=== PATIENT | male | born 1980 | race African-American/Black ===

== ENCOUNTER 2020-11-19 17:24 | Emergency (ER) | payer MEDICAID ==
[~2020-11-19] VITALS: Ht 180.3 cm; Wt 110.0 kg
[2020-11-19] MEDS ORDERED: MECLIZINE 25MG TABLET PO ONE (18:15)
[2020-11-19 18:21] LABS: BASOPHILS % 1.1 % (0.0-2.0); EOSINOPHILS % 5.1 % (0.0-5.0); HEMATOCRIT. 40.8 % (42.0-52.0); HEMOGLOBIN. 14.1 g/dL (14.0-18.0); LYMPHOCYTES % 25.8 % (20.0-50.0); MEAN CORPUSCULAR HEMOGLOBIN 31.2 pg (28.0-32.0); MEAN CORPUSCULAR VOLUME 90.7 fL (80.0-94.0); MEAN PLATELET VOLUME 6.9 fl (7.4-10.4); MONOCYTES % 8.9 % (2.0-8.0); NEUTROPHILS % 59.1 % (40.0-76.0); PLATELET 286 x1000/uL (130-400); RED CELL DISTRIBUTION WIDTH 13.1 % (11.6-14.6)
[2020-11-19 18:22] LABS: CHLORIDE 106 mEq/L (98-107)
[2020-11-19 19:54] LABS: CLARITY URINE CLEAR (CLEAR); COLOR URINE YELLOW (YELLOW); KETONES URINE NEGATIVE (NEGATIVE); LEUKOCYTE ESTERASE URINE NEGATIVE (NEGATIVE); NITRITE URINE NEGATIVE (NEGATIVE); OCCULT BLOOD URINE NEGATIVE (NEGATIVE); PROTEIN URINE NEGATIVE (NEGATIVE); SPECIFIC GRAVITY URINE 1.003 (1.005-1.030); UROBILINOGEN URINE 0.2 E.U./dL (0.2-1.0)
[2020-11-19 20:42] VITALS: BP 120/80
[2020-11-19] MEDS ORDERED: KETOROLAC 60MG/2ML VIAL IM ONE (20:45)
[2020-11-21] MEDS ORDERED: AZIT1PAC9 MT (18:19)
[2020-11-21] MEDS ORDERED: MECL-159 MT (18:19)
[2020-11-21] MEDS ORDERED: AMOX-494 MT (18:19)
[2020-11-23 04:09] LABS: NEISSERIA GONORRHOEAE NAA Negative (Negative)
== END 2020-11-19 20:43 | disposition home or self-care (01) ==
LOC: ER 17:24
DX: R42 Dizziness and giddiness (principal); J18.9 Pneumonia, unspecified organism; I10 Essential (primary) hypertension; Z88.8 Allergy status to other drugs, medicaments and biological substances
CPT/HCPCS: 36415; 71045; 80053; 81003; 83880; 84484; 85025; 87491; 87591; 93005; 96372; 99285; J1885; J8597

== ENCOUNTER 2022-04-25 15:15 | Emergency (ER) | payer MEDICAID, OTHER ==
[~2022-04-25] VITALS: Ht 180.3 cm; Wt 106.0 kg
[~2022-04-25 15:15] MED LIST: AMOX-494 MT; AZIT1PAC9 MT; MECL-159 MT
[2022-04-25 18:25] LABS: BASOPHILS % 0.6 % (0.0-2.0); EOSINOPHILS % 3.6 % (0.0-5.0); HEMATOCRIT. 42.6 % (42.0-52.0); HEMOGLOBIN. 14.3 g/dL (14.0-18.0); LYMPHOCYTES % 24.1 % (20.0-50.0); MEAN CORPUSCULAR HEMOGLOBIN 30.2 pg (28.0-32.0); MEAN CORPUSCULAR VOLUME 90.3 fL (80.0-94.0); MEAN PLATELET VOLUME 7.1 fl (7.4-10.4); MONOCYTES % 13.1 % (2.0-8.0); NEUTROPHILS % 58.6 % (40.0-76.0); PLATELET 257 x1000/uL (130-400); RED BLOOD CELL COUNT 4.72 mill/uL (4.7-6.1); RED CELL DISTRIBUTION WIDTH 14.2 % (11.6-14.6)
[2022-04-25 18:30] LABS: CHLORIDE 105 mEq/L (98-107)
[2022-04-25 20:19] VITALS: BP 149/95
== END 2022-04-25 20:22 | disposition home or self-care (01) ==
LOC: ER 15:28
DX: K46.9 Unspecified abdominal hernia without obstruction or gangrene (principal); I10 Essential (primary) hypertension; Z88.0 Allergy status to penicillin
CPT/HCPCS: 36415; 74176; 80053; 85025; 99291

== ENCOUNTER 2022-05-24 11:51 | Emergency (ER) | payer OTHER ==
[~2022-05-24] VITALS: Ht 188 cm; Wt 164.3 kg
[2022-05-24 22:35] LABS: HEMATOCRIT. 43.2 % (42.0-52.0); HEMOGLOBIN. 14.5 g/dL (14.0-18.0); LYMPHOCYTES % 27.9 % (20.0-50.0); MEAN CORPUSCULAR VOLUME 89.7 fL (80.0-94.0); MEAN PLATELET VOLUME 7.2 fl (7.4-10.4); MONOCYTES % 9.6 % (2.0-8.0); NEUTROPHILS % 55.5 % (40.0-76.0); PLATELET 277 x1000/uL (130-400); RED BLOOD CELL COUNT 4.82 mill/uL (4.7-6.1); RED CELL DISTRIBUTION WIDTH 14.1 % (11.6-14.6)
[2022-05-24 22:36] LABS: CHLORIDE 106 mEq/L (98-107)
[2022-05-25] MEDS ORDERED: AZIT250T12 MT (02:05)
[2022-05-25 03:44] VITALS: BP 101/78
== END 2022-05-25 02:50 | disposition home or self-care (01) ==
LOC: ER 11:51
DX: J18.9 Pneumonia, unspecified organism (principal); I10 Essential (primary) hypertension; Z20.822 Contact with and (suspected) exposure to COVID-19
CPT/HCPCS: 36415; 71045; 80053; 82962; 84484; 85025; 87426; 87804; 93005; 99285; C9803

== ENCOUNTER 2022-06-03 09:45 | Emergency (ER) | payer OTHER ==
[~2022-06-03] VITALS: Ht 188 cm; Wt 150.0 kg
[~2022-06-03 09:45] MED LIST changes: +AZIT250T12 MT
[2022-06-03 09:53] VITALS: BP 151/101
[2022-06-03] MEDS ORDERED: KETOROLAC 60MG/2ML VIAL IM ONE (12:15)
[2022-06-03] MEDS ORDERED: AMOX1TAB16 MT (13:29)
== END 2022-06-03 13:53 | disposition home or self-care (01) ==
LOC: ER 11:04
DX: H66.92 Otitis media, unspecified, left ear (principal); R42 Dizziness and giddiness; I10 Essential (primary) hypertension; H57.89 Other specified disorders of eye and adnexa
CPT/HCPCS: 70450; 96372; 99284; J1885

== ENCOUNTER 2022-09-02 10:54 | Emergency (ER) | payer MEDICAID, OTHER ==
[~2022-09-02] VITALS: Ht 188 cm; Wt 150.0 kg
[~2022-09-02 10:54] MED LIST changes: +AMOX1TAB16 MT
[2022-09-02 10:57] VITALS: BP 157/93
[2022-09-02] MEDS ORDERED: ASPIRIN 325MG EC TABLET PO ONE (13:00)
[2022-09-02 13:30] LABS: BASOPHILS % 0.9 % (0.0-2.0); EOSINOPHILS % 6.1 % (0.0-5.0); HEMOGLOBIN. 14.6 g/dL (14.0-18.0); LYMPHOCYTES % 23.8 % (20.0-50.0); MEAN CORPUSCULAR HEMOGLOBIN 30.5 pg (28.0-32.0); MEAN CORPUSCULAR VOLUME 89.5 fL (80.0-94.0); MEAN PLATELET VOLUME 7.4 fl (7.4-10.4); MONOCYTES % 10.2 % (2.0-8.0); PLATELET 289 x1000/uL (130-400); RED CELL DISTRIBUTION WIDTH 14.2 % (11.6-14.6)
[2022-09-02 13:39] LABS: CHLORIDE 108 mEq/L (98-107)
== END 2022-09-02 17:45 | disposition home or self-care (01) ==
LOC: ER 11:20
DX: R07.89 Other chest pain (principal); I83.93 Asymptomatic varicose veins of bilateral lower extremities
CPT/HCPCS: 36415; 71045; 80053; 83880; 84484; 85025; 93005; 93970; 99285

== ENCOUNTER 2022-11-01 20:37 | Emergency (ER) | payer OTHER ==
[~2022-11-01] VITALS: Ht 188 cm; Wt 150.0 kg
[2022-11-01 21:11] LABS: BASOPHILS % 1.1 % (0.0-2.0); EOSINOPHILS % 5.4 % (0.0-5.0); HEMATOCRIT. 41.7 % (42.0-52.0); LYMPHOCYTES % 30.6 % (20.0-50.0); MEAN CORPUSCULAR HEMOGLOBIN 30.3 pg (28.0-32.0); MEAN CORPUSCULAR VOLUME 90.6 fL (80.0-94.0); MEAN PLATELET VOLUME 7.2 fl (7.4-10.4); MONOCYTES % 9.7 % (2.0-8.0); NEUTROPHILS % 53.2 % (40.0-76.0); PLATELET 280 x1000/uL (130-400); RED BLOOD CELL COUNT 4.61 mill/uL (4.7-6.1); RED CELL DISTRIBUTION WIDTH 14.2 % (11.6-14.6)
[2022-11-01 21:21] LABS: CHLORIDE 107 mEq/L (98-107)
[2022-11-02] MEDS ORDERED: MORPHINE SULFATE 4 MG/ML CPJ (NOT FOR IM USE) IV STA (00:08)
[2022-11-02] MEDS ORDERED: ONDANSETRON HCL 4MG/2ML INJ IV STA (00:08)
[2022-11-02] MEDS ORDERED: SODIUM CHLORIDE 0.9% 1,000 ML IV ONE (00:15)
[2022-11-02] MEDS ORDERED: MORPHINE SULFATE 4 MG/ML CPJ (NOT FOR IM USE) IV ONE (02:22)
[2022-11-02] MEDS ORDERED: ONDANSETRON HCL 4MG/2ML INJ ONE (02:24)
[2022-11-02 05:00] VITALS: BP 158/98
[2022-11-02] MEDS ORDERED: DOCU-138 MT (05:18)
[2022-11-02] MEDS ORDERED: HYDR-4001 MT (05:18)
[2022-11-02 05:21] LABS: CLARITY URINE CLEAR (CLEAR); COLOR URINE YELLOW (YELLOW); KETONES URINE NEGATIVE (NEGATIVE); LEUKOCYTE ESTERASE URINE NEGATIVE (NEGATIVE); NITRITE URINE NEGATIVE (NEGATIVE); OCCULT BLOOD URINE NEGATIVE (NEGATIVE); PH URINE 6.5 (4.5-8.0); PROTEIN URINE NEGATIVE (NEGATIVE); SPECIFIC GRAVITY URINE 1.009 (1.005-1.030); UROBILINOGEN URINE 0.2 E.U./dL (0.2-1.0)
== END 2022-11-02 05:35 | disposition home or self-care (01) ==
LOC: ER 20:37
DX: K43.9 Ventral hernia without obstruction or gangrene (principal); I10 Essential (primary) hypertension; Z88.8 Allergy status to other drugs, medicaments and biological substances; Z79.899 Other long term (current) drug therapy
CPT/HCPCS: 36415; 74176; 80053; 81003; 83605; 83690; 85025; 93005; 96361; 96374; 96375; 99285; J2270; J2405; J7030

== ENCOUNTER 2022-12-01 10:47 | Emergency (ER) | payer OTHER ==
[~2022-12-01] VITALS: Ht 188 cm; Wt 154.2 kg
[~2022-12-01 10:47] MED LIST changes: +DOCU-138 MT; +HYDR-4001 MT
[2022-12-01 10:53] VITALS: O2SAT 98
[2022-12-01] MEDS ORDERED: KETOROLAC 30MG/ML VIAL IM ONE (11:30)
[2022-12-01] MEDS ORDERED: CYCL5TAB MT (12:59)
[2022-12-01] MEDS ORDERED: IBUP-2029 MT (12:59)
[2022-12-01 13:25] VITALS: BP 135/80; PULSE 68; RESP 16; TEMP 97.9
== END 2022-12-01 13:24 | disposition home or self-care (01) ==
LOC: ER 10:47
DX: M54.31 Sciatica, right side (principal); I10 Essential (primary) hypertension; Z88.8 Allergy status to other drugs, medicaments and biological substances; Z79.899 Other long term (current) drug therapy
CPT/HCPCS: 99285; 93971; 96372; J1885

== ENCOUNTER 2023-02-01 22:02 | Emergency (ER) | payer OTHER ==
[~2023-02-01] VITALS: Ht 188 cm; Wt 158.8 kg
[~2023-02-01 22:02] MED LIST changes: +CYCL5TAB MT; +IBUP-2029 MT
[2023-02-01 22:34] VITALS: O2SAT 100
[2023-02-01 22:58] LABS: BASOPHILS % 0.8 % (0.0-2.0); EOSINOPHILS % 2.9 % (0.0-5.0); HEMATOCRIT. 39.7 % (42.0-52.0); HEMOGLOBIN. 13.4 g/dL (14.0-18.0); LYMPHOCYTES % 27.5 % (20.0-50.0); MEAN CORPUSCULAR HEMOGLOBIN 30.1 pg (28.0-32.0); MEAN CORPUSCULAR HGB CONC 33.8 g/dL (31.0-37.0); NEUTROPHILS % 58.8 % (40.0-76.0); PLATELET 269 x1000/uL (130-400); RED BLOOD CELL COUNT 4.46 mill/uL (4.7-6.1); RED CELL DISTRIBUTION WIDTH 13.6 % (11.6-14.6); WHITE BLOOD COUNT 7.8 x1000/uL (4.5-11.0)
[2023-02-01 23:06] LABS: CHLORIDE 108 mEq/L (98-107); INDEX HEMOLYSI 1 (1-3); INDEX ICTERIC 1 (1-4); INDEX LIPEMIC 1 (1-3); POTASSIUM 3.6 mEq/L (3.5-5.1); SODIUM 137 mEq/L (136-145)
[2023-02-01 23:17] LABS: ALANINE AMINOTRANSFERASE 25 IU/L (13-61); ALBUMIN 3.4 g/dL (3.4-5.0); ASPARTATE AMINOTRANSFERASE 19 IU/L (15-37); BILIRUBIN TOTAL 0.5 mg/dL (0.1-1.0); CALCIUM 8.8 mg/dL (8.5-10.1); CARBON DIOXIDE 25 mEq/L (21-32); GLUCOSE 98 mg/dL (70-105); NT PRO B-TYPE NATRIURETIC PEP 66 pg/mL (5-125); PROTEIN TOTAL 7.6 g/dL (6.0-8.3); TROPONIN I HIGH SENSITIVITY 10 ng/L (<78); UREA NITROGEN BLOOD 10 mg/dL (7-21)
[2023-02-02 05:40] VITALS: BP 170/104; PULSE 59; RESP 18; TEMP 98.7
[2023-02-02] MEDS ORDERED: MECL-159 MT (05:45)
== END 2023-02-02 05:50 | disposition home or self-care (01) ==
LOC: ER 22:02
DX: R07.89 Other chest pain (principal); R42 Dizziness and giddiness; R51.9 Headache, unspecified; F41.9 Anxiety disorder, unspecified; I10 Essential (primary) hypertension; Z79.899 Other long term (current) drug therapy
CPT/HCPCS: 36415; 71045; 80053; 83880; 84484; 85025; 93005; 99285

== ENCOUNTER 2023-05-08 12:42 | Emergency (ER) | payer OTHER ==
[~2023-05-08] VITALS: Ht 189.2 cm; Wt 159.0 kg
[~2023-05-08 12:42] MED LIST changes: -MECL-159 MT; +MECL-299 MT
[2023-05-08 13:01] VITALS: O2SAT 100
[2023-05-08 19:08] VITALS: BP 185/118; PULSE 78; RESP 18; TEMP 98.4
== END 2023-05-08 19:10 | disposition home or self-care (01) ==
LOC: ER 12:42
DX: I83.91 Asymptomatic varicose veins of right lower extremity (principal); I10 Essential (primary) hypertension; Z88.8 Allergy status to other drugs, medicaments and biological substances; Z79.899 Other long term (current) drug therapy
CPT/HCPCS: 93971; 99284

== ENCOUNTER 2023-06-30 10:37 | Emergency (ER) | payer OTHER ==
[~2023-06-30] VITALS: Ht 182.9 cm; Wt 131.0 kg
[2023-06-30 10:52] VITALS: O2SAT 99
[2023-06-30] MEDS ORDERED: IBUPROFEN 800MG TABLET PO ONE (11:30)
[2023-06-30] MEDS ORDERED: IBUPROFEN 400MG TABLET PO SCH (12:00)
[2023-06-30] MEDS ORDERED: IBUP-2030 MT (14:34)
[2023-06-30 15:44] VITALS: BP 158/112; PULSE 67; RESP 18; TEMP 97.4
== END 2023-06-30 15:47 | disposition home or self-care (01) ==
LOC: ER 10:37
DX: M79.605 Pain in left leg (principal); M79.604 Pain in right leg; I10 Essential (primary) hypertension; Z88.8 Allergy status to other drugs, medicaments and biological substances; Z79.899 Other long term (current) drug therapy; Z98.890 Other specified postprocedural states
CPT/HCPCS: 73552; 93970; 99284

== ENCOUNTER 2023-09-02 15:53 | Emergency (ER) | payer OTHER ==
[~2023-09-02] VITALS: Ht 190.5 cm; Wt 158.0 kg
[~2023-09-02 15:53] MED LIST changes: +IBUP-2030 MT
[2023-09-02 15:58] VITALS: TEMP 98.6; O2SAT 100
[2023-09-02 16:32] LABS: BASOPHILS % 1.1 % (0.0-2.0); EOSINOPHILS % 1.6 % (0.0-5.0); HEMATOCRIT. 41.1 % (42.0-52.0); HEMOGLOBIN. 13.9 g/dL (14.0-18.0); LYMPHOCYTES % 26.5 % (20.0-50.0); MEAN CORPUSCULAR HEMOGLOBIN 30.6 pg (28.0-32.0); MEAN CORPUSCULAR HGB CONC 33.9 g/dL (31.0-37.0); MEAN CORPUSCULAR VOLUME 90.2 fL (80.0-94.0); MEAN PLATELET VOLUME 7.2 fl (7.4-10.4); MONOCYTES % 9.6 % (2.0-8.0); NEUTROPHILS % 61.2 % (40.0-76.0); PLATELET 260 x1000/uL (130-400); RED BLOOD CELL COUNT 4.56 mill/uL (4.7-6.1); WHITE BLOOD COUNT 7.1 x1000/uL (4.5-11.0)
[2023-09-02 16:47] LABS: ALANINE AMINOTRANSFERASE 18 IU/L (10-49); ALBUMIN 4.4 g/dL (3.2-4.8); ASPARTATE AMINOTRANSFERASE 25 IU/L (<34); BILIRUBIN TOTAL 0.6 mg/dL (0.1-1.0); CALCIUM 8.8 mg/dL (8.7-10.4); CARBON DIOXIDE 26 mEq/L (21-32); CHLORIDE 104 mEq/L (98-107); CREATININE 0.9 mg/dL (0.6-1.3); GLUCOSE 111 mg/dL (70-105); POTASSIUM 3.6 mEq/L (3.5-5.1); PROTEIN TOTAL 7.2 g/dL (6.0-8.3); SODIUM 136 mEq/L (136-145); TROPONIN I HIGH SENSITIVITY 37 ng/L (3.0-53); UREA NITROGEN BLOOD 11 mg/dL (9-23)
[2023-09-02 18:38] LABS: HCG SCREEN NEGATIVE
[2023-09-02] MEDS ORDERED: IBUP-2029 MT (19:51)
[2023-09-02] MEDS ORDERED: METH-653 MT (19:51)
[2023-09-02 20:50] VITALS: BP 141/62; PULSE 81; RESP 15
== END 2023-09-02 21:03 | disposition home or self-care (01) ==
LOC: ER 15:53
DX: S29.019A Strain of muscle and tendon of unspecified wall of thorax, initial encounter (principal); R07.89 Other chest pain; F41.9 Anxiety disorder, unspecified; I10 Essential (primary) hypertension; Z98.890 Other specified postprocedural states; Z88.8 Allergy status to other drugs, medicaments and biological substances; X58.XXXA Exposure to other specified factors, initial encounter; Y93.89 Activity, other specified; Y92.89 Other specified places as the place of occurrence of the external cause; Y99.8 Other external cause status
CPT/HCPCS: 36415; 71045; 80053; 84484; 84703; 85025; 93005; 99285

== ENCOUNTER 2023-10-17 19:15 | Emergency (ER) | payer OTHER ==
[~2023-10-17] VITALS: Ht 188 cm; Wt 158.7 kg
[~2023-10-17 19:15] MED LIST changes: +METH-653 MT
[2023-10-17 19:22] VITALS: BP 168/105; PULSE 68; RESP 16; TEMP 98.5; O2SAT 99
[2023-10-17 20:55] LABS: CLARITY URINE CLEAR (CLEAR); COLOR URINE YELLOW (YELLOW); GLUCOSE URINE NEGATIVE (NEGATIVE); KETONES URINE NEGATIVE (NEGATIVE); LEUKOCYTE ESTERASE URINE NEGATIVE (NEGATIVE); NITRITE URINE NEGATIVE (NEGATIVE); OCCULT BLOOD URINE NEGATIVE (NEGATIVE); PH URINE 7.5 (4.5-8.0); PROTEIN URINE NEGATIVE (NEGATIVE); SPECIFIC GRAVITY URINE 1.019 (1.005-1.030)
[2023-10-17 22:52] LABS: BASOPHILS % 0.9 % (0.0-2.0); EOSINOPHILS % 5.8 % (0.0-5.0); HEMATOCRIT. 40.5 % (42.0-52.0); HEMOGLOBIN. 13.9 g/dL (14.0-18.0); MEAN CORPUSCULAR HEMOGLOBIN 31.2 pg (28.0-32.0); MEAN CORPUSCULAR HGB CONC 34.3 g/dL (31.0-37.0); MEAN CORPUSCULAR VOLUME 91.1 fL (80.0-94.0); NEUTROPHILS % 53.3 % (40.0-76.0); PLATELET 270 x1000/uL (130-400); RED BLOOD CELL COUNT 4.44 mill/uL (4.7-6.1); RED CELL DISTRIBUTION WIDTH 13.5 % (11.6-14.6); WHITE BLOOD COUNT 7.7 x1000/uL (4.5-11.0)
[2023-10-17 22:58] LABS: CARBON DIOXIDE 25 mEq/L (21-32); CHLORIDE 107 mEq/L (98-107); POTASSIUM 3.9 mEq/L (3.5-5.1); SODIUM 137 mEq/L (136-145)
[2023-10-17 22:59] LABS: CALCIUM 9.4 mg/dL (8.7-10.4)
[2023-10-17 23:04] LABS: GLUCOSE 94 mg/dL (70-105); UREA NITROGEN BLOOD 11 mg/dL (9-23)
[2023-10-17 23:05] LABS: TROPONIN I HIGH SENSITIVITY 22 ng/L (3.0-53)
[2023-10-18] MEDS ORDERED: NAPR-1176 MT (04:36)
== END 2023-10-18 04:54 | disposition home or self-care (01) ==
LOC: ER 19:15
DX: R07.89 Other chest pain (principal); R06.02 Shortness of breath; M79.89 Other specified soft tissue disorders; I10 Essential (primary) hypertension; Z88.3 Allergy status to other anti-infective agents; Z79.899 Other long term (current) drug therapy; Z98.890 Other specified postprocedural states
CPT/HCPCS: 36415; 71045; 80048; 81003; 84484; 85025; 93005; 93970; 99285

== ENCOUNTER 2023-11-13 17:20 | Emergency (ER) | payer OTHER ==
[~2023-11-13] VITALS: Ht 188 cm; Wt 153.2 kg
[~2023-11-13 17:20] MED LIST changes: +NAPR-1176 MT
[2023-11-13 17:45] VITALS: O2SAT 99
[2023-11-13] MEDS: ASPIRIN 81MG TABLET PO ONE (19:16)
[2023-11-13 19:46] LABS: BASOPHILS % 1.2 % (0.0-2.0); EOSINOPHILS % 2.8 % (0.0-5.0); HEMATOCRIT. 43.7 % (42.0-52.0); MEAN CORPUSCULAR HEMOGLOBIN 31.3 pg (28.0-32.0); MEAN CORPUSCULAR HGB CONC 34.4 g/dL (31.0-37.0); MEAN CORPUSCULAR VOLUME 90.9 fL (80.0-94.0); MONOCYTES % 11.3 % (2.0-8.0); NEUTROPHILS % 48.7 % (40.0-76.0); PLATELET 324 x1000/uL (130-400); RED BLOOD CELL COUNT 4.81 mill/uL (4.7-6.1); RED CELL DISTRIBUTION WIDTH 13.2 % (11.6-14.6); WHITE BLOOD COUNT 8.3 x1000/uL (4.5-11.0)
[2023-11-13 19:55] LABS: CHLORIDE 103 mEq/L (98-107); POTASSIUM 3.8 mEq/L (3.5-5.1); SODIUM 134 mEq/L (136-145)
[2023-11-13 19:56] LABS: CALCIUM 9.9 mg/dL (8.7-10.4); CARBON DIOXIDE 23 mEq/L (21-32)
[2023-11-13 19:57] LABS: D-DIMER 0.35 mg/L FEU (<0.50); PARTIAL THROMBOPLASTIN TIME 29.3 sec (23.4-31.0); PROTHROMBIN TIME 10.9 sec (9.6-11.0)
[2023-11-13 20:01] LABS: CREATININE 1.2 mg/dL (0.6-1.3); GLUCOSE 98 mg/dL (70-105); TROPONIN I HIGH SENSITIVITY 15 ng/L (3.0-53); UREA NITROGEN BLOOD 19 mg/dL (9-23)
[2023-11-13 20:02] LABS: ETHANOL BLOOD < 10 mg/dL (<10)
[2023-11-13 20:06] LABS: *AMPHETAMINES SCREEN URINE NEGATIVE (NEGATIVE); *BARBITURATES SCREEN URINE NEGATIVE (NEGATIVE); *BENZODIAZEPINES SCREEN URINE NEGATIVE (NEGATIVE); *COCAINE SCREEN URINE NEGATIVE (NEGATIVE); METHADONE URINE SCREEN NEGATIVE (NEGATIVE); OPIATES URINE SCREEN NEGATIVE (NEGATIVE); PHENCYCLIDINE URINE SCREEN NEGATIVE (NEGATIVE)
[2023-11-13 20:07] LABS: CANNABINOID URINE SCREEN PRESUMPTIVE POSITIVE (NEGATIVE); ECSTASY MDMA SCREEN URINE NEGATIVE (NEGATIVE)
[2023-11-13 22:31] VITALS: BP 122/53; PULSE 84; RESP 15; TEMP 99
[2023-11-13 22:50] LABS: TROPONIN I HIGH SENSITIVITY 14 ng/L (3.0-53)
== END 2023-11-13 22:46 | disposition short-term general hospital (02) ==
LOC: ER 17:20 → CANBEDREQ 11-15 07:24
DX: R07.89 Other chest pain (principal); I10 Essential (primary) hypertension; Z88.8 Allergy status to other drugs, medicaments and biological substances; Z79.899 Other long term (current) drug therapy
CPT/HCPCS: 80305; 80048; 80320; 84484; 83880; 83690; 85025; 85379; 85610; 85730; 36415; 71045; 93005; 99285; Z7610 ×2; G0480